=== PATIENT | male | born 1950 | race Caucasian/White ===

== ENCOUNTER 2020-06-16 16:25 | Emergency (ER) | payer MEDICARE, OTHER ==
[2020-06-16] MEDS ORDERED: LIDOCAINE 2% UROJET 20 MG/ML SYG TOP ONE (16:42)
[2020-06-16] MEDS ORDERED: LIDOCAINE HCL 2% (MOUTH-THROAT) 15 ML UD MT ONE (16:47)
--- NOTE | 2020-06-16 18:11 | ED.PDOC ---
History of Present Illness - General Chief Complaint: Problem Stated Complaint: difficulty with urination Time Seen by Provider: 06/16/20 16:42 Source: patient Exam Limitations: no limitations - History of Present Illness Initial Comments: 69 y/o male has had increasing difficulty emptying his bladder. Sometimes it takes 2 hrs in the morning to empty. This morning he didn't urinate at all . Timing/Duration: other - all day Quality: severe, steady Onset Location: suprapubic Radiation: none Activites at Onset: rest Improving Factors: nothing Worsening Factors: nothing Associated Symptoms: abdominal pain Allergies/Adverse Reactions: Allergies NO KNOWN ALLERGY Allergy (Verified 06/16/20 16:47) Review of Systems - Review of Systems Constitutional: States: no symptoms reported EENTM: States: no symptoms reported Respiratory: States: no symptoms reported Cardiology: States: no symptoms reported Gastrointestinal/Abdominal: States: no symptoms reported Genitourinary: States: see HPI Musculoskeletal: States: no symptoms reported Skin: States: no symptoms reported Neurological: States: no symptoms reported Physical Exam - Physical Exam General Appearance: Alert, No apparent distress, Obese Eyes, Ears, Nose, Throat Exam: PERRL/EOMI, normal ENT inspection Neck: non-tender, full range of motion, supple Cardiovascular/Respiratory: regular rate, rhythm, no M/R/G, normal breath sounds, no respiratory distress Gastrointestinal/Abdominal: other - suprapubic fullness Male Genital Exam: normal genitalia Back Exam: no CVA tenderness Extremity: normal range of motion, pedal edema Neurologic: alert, normal mood/affect, oriented x 3 Skin Exam: normal color Progress - Results/Orders Results/Orders: gil bag has 1000 ml reddish urine Departure - Departure Clinical Impression: Acute urinary retention Disposition: Discharge to Home or Self Care Condition: Good Departure Forms: ED Discharge - Pt. Copy, Patient Portal Self Enrollment Instructions: DI for Urinary Retention in Men Referrals: Demetrio Melgar MD [Primary Care Provider] - 1-2 Weeks
[2020-06-16 18:49] VITALS: BP 166/88; TEMP 97.9; O2SAT 96
== END 2020-06-16 19:05 | disposition home or self-care (01) ==
LOC: ER 16:25
DX: R33.9 Retention of urine, unspecified (principal)

== ENCOUNTER → 2020-06-18 | Outpatient (CLI) | payer MEDICARE, OTHER | LOC: GMAM 10:41 | PROVIDERS: ATTEND Family Medicine | DX: R33.9 Retention of urine, unspecified (principal) ==

== ENCOUNTER → 2020-06-30 | Outpatient (CLI) | payer MEDICARE, OTHER | LOC: ECHO 14:00 | PROVIDERS: ATTEND Family Medicine | DX: I34.0 Nonrheumatic mitral (valve) insufficiency (principal); I51.7 Cardiomegaly; I50.30 Unspecified diastolic (congestive) heart failure; R60.0 Localized edema ==

== ENCOUNTER → 2020-07-01 | Outpatient (CLI) | payer MEDICARE, OTHER | LOC: GMA MATASK 10:20 | PROVIDERS: ATTEND Family Medicine | DX: I10 Essential (primary) hypertension (principal) ==

== ENCOUNTER 2020-11-30 21:25 | Emergency (ER) | payer MEDICARE, OTHER ==
--- NOTE | 2020-11-30 22:47 | ED.PDOC ---
History of Present Illness - General Chief Complaint: Abdominal Pain Stated Complaint: Abdominal pain Time Seen by Provider: 11/30/20 21:38 Information Source: patient Exam Limitations: no limitations - History of Present Illness Initial Comments: CONSISTENT LOWER ABD/PELVIC PAIN FOR SOME TIME, ACUTELY WORSENED OVER PAST 2 D. HE VOIDS SMALL AMOUNTS Q20 MIN. SLIGHT RELIEF AFTER VOIDS. CONSTANT PELVIC ACHE 8/10. WORSE SUPINE. H/O BPH (SEP 2019 COULDN'T VOID, FOUND BPH), SEES URO DR. CAT AND TAKES MEDS (FLOMAX AND 1 OTHER). URO YESTERDAY STARTED ABX FOR POSSIBLE UTI. HAD BM THIS AM (NO CONSTIPATION). FATHER HAD AN ABDOMINAL TUMOR IN HIS 70'S, SO PT IS CONCERNED IT COULD BE MORE THAN JUST BLADDER DISTENTION FROM BPH. HAS NOT HAD CT YET PAST YEAR THAT HE CAN RECALL. H/O HTN, TOOK HIS DAILY BP MEDS. Abdominal Pain Onset Location: suprapubic Pain Radiation: no radiation Quality: severe, steady Timing/Duration: constant, getting worse Associated Symptoms: denies symptoms Review of Systems - Review of Systems Constitutional: Denies: chills, fever EENTM: States: no symptoms reported Respiratory: States: no symptoms reported Cardiology: States: no symptoms reported Gastrointestinal/Abdominal: Denies: constipation, diarrhea, nausea, vomiting Genitourinary: States: frequency, other - UR RETENTION, UNABLE TO EMPTY BLADDER. . Denies: dysuria Neurological: States: no symptoms reported Endocrine: States: no symptoms reported Hematologic/Lymphatic: States: no symptoms reported All other Systems: Reviewed and Negative Past Medical History (General) - Patient Medical History Hx Seizures: No Hx Stroke: No Hx Dementia: No Hx Asthma: No Hx of COPD: No Hx Cardiac Disorders: Yes - Artery blockage. Hx Congestive Heart Failure: No Hx Pacemaker: No Hx Hypertension: Yes Hx Thyroid Disease: No Hx Diabetes: No Hx Gastroesophageal Reflux: No Hx Renal Disease: No Hx Cancer: No Hx of HIV: No Hx Hepatitis C: No Hx MRSA: No Surgical History: other - Vaccination History Hx Tetanus, Diphtheria Vaccination: No Hx Influenza Vaccination: Yes Hx Pneumococcal Vaccination: Yes - Social History Hx Tobacco Use: No Hx Chewing Tobacco Use: No Hx Alcohol Use: Yes Hx Substance Use: No Hx Substance Use Treatment: No Hx Depression: No Feels Threatened In Home Enviroment: No Feels Threatened In a Relationship: No Hx Physical Abuse: No Hx Emotional Abuse: No Hx Suspected Abuse: No - Female History Patient is a Female of Child Bearing Age (10 -59 yrs old): No - Triage Comment ED Triage Comment: The patient walked from the ER waiting room into ER bed 5 and was alert and oriented times 4. He complained of lower left and right abdominal pain but denied nausea and diarrhea. He denied chest pain and shortness of breath and had no other noted complaints at the time of contact. Family Medical History - Family History Father Family History: No Known Physical Exam - Physical Exam General Appearance: Alert, Obvious distress Eyes, Ears, Nose, Throat Exam: PERRL/EOMI, normal ENT inspection Neck: full range of motion, normal inspection Respiratory: lungs clear, normal breath sounds Cardiovascular/Chest: regular rate, rhythm, no murmur Peripheral Pulses: No deficit Gastrointestinal/Abdominal: normal bowel sounds, no organomegaly, no pulsatile mass, tenderness - SUPRAPUBIC Rectal Exam: deferred Back Exam: no CVA tenderness, no vertebral tenderness Extremity: normal range of motion, normal inspection Neurologic: no motor/sensory deficits, alert, normal mood/affect, oriented x 3 Skin Exam: normal color, warm/dry Lymphatic: no adenopathy Progress - Progress Progress: 12/01/20 01:11 CT = BLADDER DISTENDED, MILD BL HYDONEPHROSIS FROM SEVERE BPH. TAKES FLOMAX AND ONE OTHER BPH MED (LIKELY PROSCAR). CMP NONCONTRIBUTORY. CBC NEUTROPHILIC LEUKOCYTOSIS. UA NEG FOR IFXN BUT IS ON ABX FROM URO FOR EMPIRIC TX FOR UTI. UTI MIGHT HAVE BEEN SOURCE OF ELEV WBC, PT IS OTHERWISE ASX. I D/W PT THE RESULTS - HIS PAIN IS RETURNING. GIVING REPEAT DILAUDID AND STRAIGHT CATHETERIZING X 1. THEN DC TO HOME WITH F/U WITH UROLOGY, SCHEDULED. Departure - Departure Clinical Impression: BPH with obstruction/lower urinary tract symptoms, Urinary retention due to benign prostatic hyperplasia, Neutrophilic leukocytosis, Hydronephrosis due to obstruction of bladder Disposition: Discharge to Home or Self Care Condition: Good Departure Forms: ED Discharge - Pt. Copy, Patient Portal Self Enrollment Instructions: DI for Abdominal Pain-Adult, Benign Prostatic Hyperplasia (Enlarged Prostate) (DC) Diet: resume usual diet Activity: increase activity as tolerated Referrals: Demetrio Melgar MD [Primary Care Provider] - 1-2 Weeks Additional Instructions: Please finish taking the antibiotics which your urologist prescribed. Continue frequent voidings.
[2020-11-30] MEDS ORDERED: SODIUM CHLORIDE 0.9% (FLUSH) 10 ML SYG IV PRN (22:49)
[2020-11-30] MEDS ORDERED: HYDROmorphone HCL INJ 2 MG/ML VIAL IV ONE (22:56)
--- NOTE | 2020-12-01 00:25 | CT ---
EXAM DESCRIPTION: Abdomen/Pelvis w/Contrast CLINICAL HISTORY: 70 years Male PELVIC PAIN, URINARY RETENTION, H/O BPH. COMPARISON: None. TECHNIQUE: Contiguous axial images obtained through the abdomen and pelvis following IV contrast. Reformatted images obtained. This exam was performed according to our department optimization program which includes automated exposure control, adjustment of the mA and/or kv according to patient size and/or use of iterative reconstruction technique. FINDINGS: There is a 0.5 cm nodular lesion in the lateral right lower lung on image 9/98. Minimal pericardial effusion. The liver appears unremarkable. The spleen and pancreas appear unremarkable. No adrenal masses. There is mild bilateral hydronephrosis without ureteral calculi visualized. There is a tiny nonobstructing right renal calculus. There are small left renal cyst. There is a probable right parapelvic renal cyst. The gallbladder is visualized. No aneurysmal dilatation of the aorta. No bowel obstruction. The appendix appears unremarkable. Occasional colonic diverticula. The prostate gland is enlarged. The urinary bladder is markedly distended. No free fluid is visualized. Small fat-containing inguinal hernias. Tiny fat-containing umbilical hernia. There is some stranding in the subcutaneous fatty tissues in the intra-abdominal fatty tissues at the level of the umbilical hernia. Degenerative changes in the spine. IMPRESSION: The prostate gland is enlarged with marked distention of the urinary bladder. The findings suggest bladder outlet obstruction. There is also mild bilateral hydronephrosis likely related to the bladder outlet obstruction. There is some stranding in the subcutaneous fatty tissues and in the intra-abdominal fatty tissues around the area of the umbilicus suggesting inflammatory change. Clinical correlation recommended. There is a tiny nonobstructing right renal calculus. 5 mm right solid right lower lobe pulmonary nodule. No routine follow-up imaging is recommended. These guidelines do not apply to immunocompromised patients and patients with cancer. Follow up in patients with significant comorbidities as clinically warranted. For lung cancer screening, adhere to Lung-RADS guidelines. Reference: Radiology. 2017; 284(1):228-43. Electronically signed by: Timmy Marshall MD 12/01/2020 12:23 AM HAND [employer]OL [employer]ER
[2020-12-01 01:02] VITALS: O2SAT 95
[2020-12-01] MEDS ORDERED: HYDROmorphone HCL INJ 2 MG/ML VIAL IV ONE (01:10)
[2020-12-01 01:37] VITALS: BP 128/60; TEMP 98.3
== END 2020-12-01 01:37 | disposition home or self-care (01) ==
LOC: ER 21:25
DX: N40.1 Benign prostatic hyperplasia with lower urinary tract symptoms (principal); R33.8 Other retention of urine; D72.829 Elevated white blood cell count, unspecified; N13.30 Unspecified hydronephrosis; I10 Essential (primary) hypertension; Z79.899 Other long term (current) drug therapy
CPT/HCPCS: 36415; 74177; 80053; 81001; 85025; J1170

== ENCOUNTER → 2020-12-03 | Outpatient (CLI) | payer MEDICARE, OTHER | LOC: LAB 10:38 | PROVIDERS: ATTEND Urology | DX: Z01.818 Encounter for other preprocedural examination (principal); N40.1 Benign prostatic hyperplasia with lower urinary tract symptoms ==